=== PATIENT | female | born 1975 | race Caucasian/White ===

== ENCOUNTER → 2017-04-24 | Outpatient (CLI) | payer OTHER ==
--- NOTE | ~2017-04-24 | NM22 ---
[facility] A Service of [facility] RADIOLOGY TEXT RESULTS PATIENT: KAYODE NOONAN LOCATION: [facility] : 77 UNIT #: [id number] AGE: [address]: CHEMA MEJIA APRN SEX: F ORDER DR: [id number] [facility] [address]. [place], [place] [address] [id number] O MR#: [id number] Acc #: [id number] NAME: KAYODE NOONAN : 1975 SEX: F STUDY DATE/TIME: 04/24/2017 11:21 UNIT: [facility] ROOM: STUDY DESCRIPTION: IA Hepatobiliary W GB Pharm Attending Physician: Chema Mejia Aprn Referring Physician: Chema Mejia Aprn Ordering Physician: Cehma Mejia Aprn Primary Care Physician: Carlos Ugalde M.D. MEDICAL IMAGING REPORT This report is preliminary unless electronic signature is present EXAM Hepatobiliary scan INDICATIONS Nausea, right upper quadrant abdominal pain. Hyperbilirubinemia, beginning 1.5 half weeks ago. PROCEDURE The patient was administered 5 mCi technetium labeled Choletec. Imaging of the upper abdomen was performed for 120 minutes. COMPARISON None FINDINGS Liver shows extraction of the radiotracer but no significant excretion. There is no visualization of the gallbladder by 120 minutes. IMPRESSION 1. The liver takes up the radiotracer, but shows no significant excretion. Findings are suggestive of liver dysfunction. 2. The gallbladder is not seen on this study. This could be related to the lack of biliary excretion or cystic duct obstruction. 3. Findings were discussed with Mindi Mejia at the time of this dictation. Dictated by... Florencio Camarillo M.D. THIS IS AN ELECTRONICALLY VERIFIED REPORT Florencio Camarillo M.D. at 04/28/2017 11:08 AM EED/to [facility] A Service of [facility] RADIOLOGY TEXT RESULTS PATIENT: KAYODE NOONAN LOCATION: [facility] : 77 UNIT #: [id number] AGE: [address]: CHEMA MEJIA APRN SEX: F ORDER DR: TD: 04/24/2017 18:45 JOB #: [id number] MEDICAL IMAGING REPORT Page 1 of 1 COPY
== END | disposition home or self-care (01) ==
LOC: CNUC 04-23 14:00
DX: R10.11 Right upper quadrant pain (principal); R93.6 Abnormal findings on diagnostic imaging of limbs; R74.8 Abnormal levels of other serum enzymes; R82.2 Biliuria
CPT/HCPCS: 78227; A9537